=== PATIENT | male | born 2000 | race Caucasian/White ===

== ENCOUNTER 2022-05-11 12:19 | Emergency (ER) | payer OTHER ==
[2022-05-11 12:42] VITALS: BP 122/73; PULSE 80; RESP 18; BMI 18.4
[2022-05-11 12:43] VITALS: TEMP 98.2
[2022-05-11] MEDS ORDERED: DIPHTH,PERTUSS(ACELL),TET 0.5 ML DISP.SYRIN IM ONE ×2 (14:54→15:07)
== END 2022-05-11 15:15 | disposition home or self-care (01) ==
LOC: JER 12:19
PROC: 3E0234Z Introduction of Serum, Toxoid and Vaccine into Muscle, Percutaneous Approach (ICD-10-PCS; principal; 2022-05-11)
DX: R55 Syncope and collapse (principal); W19.XXXA Unspecified fall, initial encounter
CPT/HCPCS: 90471; 90715; 93005; 93010; 99283-25